=== PATIENT | male | born 1965 | race African-American/Black ===

== ENCOUNTER 2017-01-06 13:43 | Emergency (ER) | payer MEDICAID ==
[~2017-01-06] VITALS: Ht 175.3 cm; Wt 68.0 kg
[~2017-01-06 13:43] MED LIST: ATOR40TA70 PO; CHLO25TA27 GT; CLON0.2T PO; DICL75TA5 PO; ENAL10TA PO; ESOM40CA PO; HYDR-519 PO; LORA1TAB PO; ONDA4TAB51 PO
[2017-01-06] MEDS ORDERED: HYDROCODONE/ACETAMINOPHEN 5/325MG TABLET PO ONE ×2 (15:00→18:30)
[2017-01-06] MEDS ORDERED: LIDOCAINE HCL 1% 20ML VIAL (Pyxis) INJ INFIL ONE (16:45)
[2017-01-06] MEDS ORDERED: FENTANYL CITRATE/PF 50MCG/ML 2ML VIAL IV ONE (17:30)
[2017-01-06 18:40] VITALS: BP 165/101
== END 2017-01-06 19:09 | disposition home or self-care (01) ==
LOC: ER 14:14
DX: S52.571A Other intraarticular fracture of lower end of right radius, initial encounter for closed fracture (principal); I10 Essential (primary) hypertension; I51.9 Heart disease, unspecified; F12.10 Cannabis abuse, uncomplicated; Z87.19 Personal history of other diseases of the digestive system; Z88.6 Allergy status to analgesic agent; Z88.8 Allergy status to other drugs, medicaments and biological substances; Z79.899 Other long term (current) drug therapy; W11.XXXA Fall on and from ladder, initial encounter; Y93.89 Activity, other specified; Y92.89 Other specified places as the place of occurrence of the external cause; Y99.8 Other external cause status
CPT/HCPCS: 25675; 71020; 72125; 73100; 73110; 73130; 73630; 99284; J3010; J3490; A4565

== ENCOUNTER 2017-04-13 06:01 | Emergency (ER) | payer MEDICAID ==
[~2017-04-13] VITALS: Ht 175.3 cm; Wt 68.0 kg
[2017-04-13 06:03] VITALS: BP 186/82
== END 2017-04-13 08:57 | disposition left against medical advice (07) ==
LOC: ER 06:01
DX: F10.10 Alcohol abuse, uncomplicated (principal); Y90.9 Presence of alcohol in blood, level not specified; Z53.21 Procedure and treatment not carried out due to patient leaving prior to being seen by health care provider

== ENCOUNTER 2017-08-14 20:42 | Emergency (ER) | payer MEDICAID ==
[~2017-08-14] VITALS: Ht 175.3 cm; Wt 72.0 kg
[2017-08-14 21:42] LABS: BASOPHILS % 1.3 % (0.0-2.0); EOSINOPHILS % 2.1 % (0.0-5.0); HEMATOCRIT. 41.7 % (42.0-52.0); HEMOGLOBIN. 14.3 g/dL (14.0-18.0); LYMPHOCYTES % 34.8 % (20.0-50.0); MEAN CORPUSCULAR HEMOGLOBIN 31.5 pg (28.0-32.0); MEAN CORPUSCULAR VOLUME 91.7 fL (80.0-94.0); MEAN PLATELET VOLUME 7.5 fl (7.4-10.4); MONOCYTES % 5.9 % (2.0-8.0); NEUTROPHILS % 55.9 % (40.0-76.0); PLATELET 310 x1000/uL (130-400); RED BLOOD CELL COUNT 4.55 mill/uL (4.7-6.1); RED CELL DISTRIBUTION WIDTH 13.8 % (11.6-14.6)
[2017-08-14 21:45] LABS: CHLORIDE 108 mEq/L (98-107)
[2017-08-14 21:47] LABS: PROTHROMBIN TIME 10.1 sec (9.4-11.6)
[2017-08-14 21:54] LABS: CARBON DIOXIDE 26 mEq/L (21-32); ETHANOL BLOOD 272 mg/dL
[2017-08-14] MEDS ORDERED: ASPIRIN 81MG TABLET PO ONE (22:45)
[2017-08-14 23:06] LABS: CLARITY URINE CLEAR (CLEAR); COLOR URINE YELLOW (YELLOW); KETONES URINE NEGATIVE (NEGATIVE); LEUKOCYTE ESTERASE URINE NEGATIVE (NEGATIVE); NITRITE URINE NEGATIVE (NEGATIVE); OCCULT BLOOD URINE NEGATIVE (NEGATIVE); PROTEIN URINE NEGATIVE (NEGATIVE); UROBILINOGEN URINE 0.2 E.U./dL (0.2-1.0)
[2017-08-14 23:19] LABS: *AMPHETAMINES SCREEN URINE NEGATIVE (NEGATIVE); *BARBITURATES SCREEN URINE NEGATIVE (NEGATIVE); *BENZODIAZEPINES SCREEN URINE NEGATIVE (NEGATIVE); *COCAINE SCREEN URINE NEGATIVE (NEGATIVE); CANNABINOID URINE SCREEN NEGATIVE (NEGATIVE); METHADONE URINE SCREEN NEGATIVE (NEGATIVE); OPIATES URINE SCREEN NEGATIVE (NEGATIVE); PHENCYCLIDINE URINE SCREEN NEGATIVE (NEGATIVE)
[2017-08-15 01:48] VITALS: BP 122/64
== END 2017-08-15 02:55 | disposition home or self-care (01) ==
LOC: ER 21:00
DX: F10.129 Alcohol abuse with intoxication, unspecified (principal); K21.9 Gastro-esophageal reflux disease without esophagitis; F12.10 Cannabis abuse, uncomplicated; R00.0 Tachycardia, unspecified; Y90.8 Blood alcohol level of 240 mg/100 ml or more; I11.9 Hypertensive heart disease without heart failure; E78.5 Hyperlipidemia, unspecified; I51.7 Cardiomegaly; Z88.6 Allergy status to analgesic agent; Z88.5 Allergy status to narcotic agent; Z79.82 Long term (current) use of aspirin; Z91.018 Allergy to other foods
CPT/HCPCS: 36415; 71045; 80053; 80305; 81003; 84484; 85025; 85610; 93005; 99285; G0482

== ENCOUNTER 2017-11-11 16:34 | Emergency (ER) | payer MEDICAID ==
[~2017-11-11] VITALS: Ht 177.8 cm; Wt 75.0 kg
[2017-11-11] MEDS ORDERED: ACETAMINOPHEN 500MG TABLET PO ONE (20:45)
[2017-11-11] MEDS ORDERED: ONDANSETRON 4MG ODT PO STA (21:10)
[2017-11-11] MEDS ORDERED: SODIUM CHLORIDE 0.9% 1,000 ML IV ONE (21:50)
[2017-11-11] MEDS ORDERED: CLONIDINE 0.1MG TABLET PO ONE (22:30)
[2017-11-11 23:45] LABS: BASOPHILS % 0.8 % (0.0-2.0); EOSINOPHILS % 0.3 % (0.0-5.0); HEMOGLOBIN. 14.2 g/dL (14.0-18.0); LYMPHOCYTES % 15.2 % (20.0-50.0); MEAN CORPUSCULAR VOLUME 92.2 fL (80.0-94.0); MEAN PLATELET VOLUME 7.5 fl (7.4-10.4); MONOCYTES % 4.6 % (2.0-8.0); NEUTROPHILS % 79.1 % (40.0-76.0); PLATELET 293 x1000/uL (130-400); RED BLOOD CELL COUNT 4.45 mill/uL (4.7-6.1); RED CELL DISTRIBUTION WIDTH 14.4 % (11.6-14.6)
[2017-11-11 23:51] LABS: CHLORIDE 105 mEq/L (98-107)
[2017-11-11 23:57] LABS: ETHANOL BLOOD 135 mg/dL
[2017-11-11 23:59] LABS: *BENZODIAZEPINES SCREEN URINE NEGATIVE (NEGATIVE); *COCAINE SCREEN URINE NEGATIVE (NEGATIVE); CANNABINOID URINE SCREEN NEGATIVE (NEGATIVE); PHENCYCLIDINE URINE SCREEN NEGATIVE (NEGATIVE)
[2017-11-12 00:01] LABS: *AMPHETAMINES SCREEN URINE NEGATIVE (NEGATIVE); *BARBITURATES SCREEN URINE NEGATIVE (NEGATIVE); METHADONE URINE SCREEN NEGATIVE (NEGATIVE)
[2017-11-12 00:26] LABS: OPIATES URINE SCREEN NEGATIVE (NEGATIVE)
[2017-11-12] MEDS ORDERED: CLONIDINE 0.2MG TABLET PO ONE (02:30)
[2017-11-12] MEDS ORDERED: HYDROCODONE/ACETAMINOPHEN 5/325MG TABLET PO ONE (02:30)
[2017-11-12 04:44] VITALS: BP 136/93
== END 2017-11-12 04:50 | disposition home or self-care (01) ==
LOC: ER 16:34
DX: S00.83XA Contusion of other part of head, initial encounter (principal); S40.012A Contusion of left shoulder, initial encounter; M25.512 Pain in left shoulder; F10.129 Alcohol abuse with intoxication, unspecified; I10 Essential (primary) hypertension; M25.78 Osteophyte, vertebrae; J32.0 Chronic maxillary sinusitis; M48.02 Spinal stenosis, cervical region; Y04.0XXA Assault by unarmed brawl or fight, initial encounter; Z88.5 Allergy status to narcotic agent; Z88.6 Allergy status to analgesic agent
CPT/HCPCS: 36415; 70450; 71045; 72125; 73030; 80048; 80305; 85025; 99285; G0482; J7030; Q0162; Z7610

== ENCOUNTER 2017-11-28 15:58 | Emergency (ER) | payer MEDICAID ==
[2017-11-28] MEDS ORDERED: ONDANSETRON HCL 4MG/2ML VIAL IV STA (16:58)
[2017-11-28] MEDS ORDERED: HYDRALAZINE 20MG/ML VIAL IV ONE (17:00)
[2017-11-28 17:07] LABS: BASOPHILS % 1.2 % (0.0-2.0); EOSINOPHILS % 1.4 % (0.0-5.0); HEMATOCRIT. 42.9 % (42.0-52.0); HEMOGLOBIN. 14.7 g/dL (14.0-18.0); LYMPHOCYTES % 42.9 % (20.0-50.0); MEAN CORPUSCULAR HEMOGLOBIN 31.4 pg (28.0-32.0); MEAN CORPUSCULAR VOLUME 91.7 fL (80.0-94.0); MEAN PLATELET VOLUME 7.3 fl (7.4-10.4); MONOCYTES % 6.2 % (2.0-8.0); NEUTROPHILS % 48.3 % (40.0-76.0); PLATELET 257 x1000/uL (130-400); RED BLOOD CELL COUNT 4.68 mill/uL (4.7-6.1); RED CELL DISTRIBUTION WIDTH 14.2 % (11.6-14.6)
[2017-11-28 17:12] LABS: CHLORIDE 107 mEq/L (98-107)
[2017-11-28 17:14] LABS: PARTIAL THROMBOPLASTIN TIME 27.1 sec (23.4-31.0); PROTHROMBIN TIME 10.4 sec (9.4-11.6)
[2017-11-28] MEDS ORDERED: DIPHENHYDRAMINE 50MG/ML VIAL IV ONE ×2 (17:15→20:45)
[2017-11-28] MEDS ORDERED: MORPHINE SULFATE 4 MG/ML CPJ (NOT FOR IM USE) IV ONE ×2 (17:15→20:45)
[2017-11-28] MEDS ORDERED: IOHEXOL-300 100 ML BOTTLE ONE (19:08)
[2017-11-28 20:29] LABS: CLARITY URINE CLEAR (CLEAR); COLOR URINE YELLOW (YELLOW); KETONES URINE NEGATIVE (NEGATIVE); LEUKOCYTE ESTERASE URINE NEGATIVE (NEGATIVE); NITRITE URINE NEGATIVE (NEGATIVE); OCCULT BLOOD URINE NEGATIVE (NEGATIVE); PROTEIN URINE NEGATIVE (NEGATIVE); SPECIFIC GRAVITY URINE 1.019 (1.005-1.030); UROBILINOGEN URINE 0.2 E.U./dL (0.2-1.0)
[2017-11-28 22:35] VITALS: BP 184/120
== END 2017-11-28 23:25 | disposition short-term general hospital (02) ==
LOC: ER 16:47
DX: M50.223 Other cervical disc displacement at C6-C7 level (principal); M51.26 Other intervertebral disc displacement, lumbar region; R10.9 Unspecified abdominal pain; M51.36 Other intervertebral disc degeneration, lumbar region; I10 Essential (primary) hypertension; M48.061 Spinal stenosis, lumbar region without neurogenic claudication; M48.02 Spinal stenosis, cervical region; M25.78 Osteophyte, vertebrae; M47.9 Spondylosis, unspecified; K80.20 Calculus of gallbladder without cholecystitis without obstruction; Q63.2 Ectopic kidney; N40.0 Benign prostatic hyperplasia without lower urinary tract symptoms; K76.0 Fatty (change of) liver, not elsewhere classified; E78.00 Pure hypercholesterolemia, unspecified; Z88.5 Allergy status to narcotic agent; Z88.6 Allergy status to analgesic agent
CPT/HCPCS: 36415; 71045; 72141; 72146; 72148; 74177; 80053; 81003; 83690; 84484; 85025; 85610; 85730; 86850; 86900; 86901; 93005; 96374; 96375; 96376; 99285; J0360; J1200; J2270; J2405; Q9967

== ENCOUNTER 2019-01-01 20:31 | Inpatient (IN) | payer MEDICAID ==
[~2019-01-01] VITALS: Ht 175.3 cm; Wt 76.2 kg
[2019-01-01] MEDS ORDERED: KETOROLAC 30MG/ML VIAL IV STA (23:12)
[2019-01-01] MEDS ORDERED: ONDANSETRON HCL 4MG/2ML INJ IV STA (23:12)
[2019-01-01] MEDS ORDERED: VISCOUS LIDOCAINE 2% 15 ML UDC PO ONE (23:15)
[2019-01-01] MEDS ORDERED: MAGNESIUM/ALUMINUM HYDROXIDE/SIMETHICONE 30ML UDC PO ONE (23:15)
[2019-01-01 23:52] LABS: BASOPHILS % 1.2 % (0.0-2.0); EOSINOPHILS % 0.3 % (0.0-5.0); HEMATOCRIT. 41.4 % (42.0-52.0); HEMOGLOBIN. 14.5 g/dL (14.0-18.0); LYMPHOCYTES % 26.3 % (20.0-50.0); MEAN CORPUSCULAR HEMOGLOBIN 31.5 pg (28.0-32.0); MEAN CORPUSCULAR VOLUME 89.9 fL (80.0-94.0); MEAN PLATELET VOLUME 7.7 fl (7.4-10.4); MONOCYTES % 5.7 % (2.0-8.0); NEUTROPHILS % 66.5 % (40.0-76.0); PLATELET 253 x1000/uL (130-400); RED CELL DISTRIBUTION WIDTH 14.4 % (11.6-14.6)
[2019-01-01 23:58] LABS: CHLORIDE 104 mEq/L (98-107)
[2019-01-02 08:02] LABS: CHLORIDE 103 mEq/L (98-107)
[2019-01-02 08:09] LABS: LDL CHOLESTEROL 91 mg/dL (5-100)
[2019-01-02 08:15] LABS: HDL CHOLESTEROL 51 mg/dL (40-59)
[2019-01-02] MEDS ORDERED: GUAIFENESIN 200MG/10ML SUGAR FREE UDC PO PRN (09:15)
[2019-01-02] MEDS ORDERED: DOCUSATE SODIUM 100MG CAPSULE PO PRN (09:15)
[2019-01-02] MEDS ORDERED: MAGNESIUM/ALUMINUM HYDROXIDE/SIMETHICONE 30ML UDC PO PRN (09:15)
[2019-01-02] MEDS ORDERED: ACETAMINOPHEN 325MG TABLET PO PRN (09:15)
[2019-01-02] MEDS ORDERED: ONDANSETRON HCL 4MG/2ML INJ IV PRN (09:15)
[2019-01-02] MEDS ORDERED: DIPHENHYDRAMINE 50MG/ML VIAL IV PRN (09:15)
[2019-01-02] MEDS: ASPIRIN 81MG TABLET PO SCH (09:15)
[2019-01-02 09:19] LABS: *AMPHETAMINES SCREEN URINE NEGATIVE (NEGATIVE); *BARBITURATES SCREEN URINE NEGATIVE (NEGATIVE)
[2019-01-02 09:20] LABS: *BENZODIAZEPINES SCREEN URINE NEGATIVE (NEGATIVE); *COCAINE SCREEN URINE NEGATIVE (NEGATIVE); CANNABINOID URINE SCREEN NEGATIVE (NEGATIVE); METHADONE URINE SCREEN NEGATIVE (NEGATIVE); OPIATES URINE SCREEN PRESUMTIVE POSITIVE (NEGATIVE); PHENCYCLIDINE URINE SCREEN NEGATIVE (NEGATIVE)
[2019-01-02 10:48] LABS: PHOSPHORUS 4.5 mg/dL (2.5-4.9)
[2019-01-02 11:50] VITALS: BP 115/80
[2019-01-02 12:17] VITALS: BP 115/80
[2019-01-02] MEDS ORDERED: LORA10TA7 PO (12:28)
[2019-01-02] MEDS ORDERED: AMLO-79 MT (12:28)
[2019-01-02] MEDS: HYDROCODONE/ACETAMINOPHEN 5/325MG TABLET PO PRN ×2 (14:00→22:12)
[2019-01-02 16:00] VITALS: BP 108/76
[2019-01-02 20:00] VITALS: BP 110/78
[2019-01-03] VITALS: BP 108/78
[2019-01-03 04:00] VITALS: BP 90/56
[2019-01-03 05:58] LABS: BASOPHILS % 0.8 % (0.0-2.0); EOSINOPHILS % 2.2 % (0.0-5.0); HEMOGLOBIN. 15.3 g/dL (14.0-18.0); LYMPHOCYTES % 31.9 % (20.0-50.0); MEAN CORPUSCULAR VOLUME 91.1 fL (80.0-94.0); MEAN PLATELET VOLUME 7.9 fl (7.4-10.4); MONOCYTES % 7.9 % (2.0-8.0); NEUTROPHILS % 57.2 % (40.0-76.0); PLATELET 265 x1000/uL (130-400); RED BLOOD CELL COUNT 4.94 mill/uL (4.7-6.1); RED CELL DISTRIBUTION WIDTH 14.4 % (11.6-14.6)
[2019-01-03 06:07] LABS: CHLORIDE 106 mEq/L (98-107)
[2019-01-03 06:18] LABS: PHOSPHORUS 3.9 mg/dL (2.5-4.9)
[2019-01-03 06:19] LABS: LDL CHOLESTEROL 83 mg/dL (5-100)
[2019-01-03 06:20] LABS: CREATINE KINASE 124 IU/L (39-308)
[2019-01-03 06:21] LABS: HDL CHOLESTEROL 50 mg/dL (40-59)
[2019-01-03 08:00] VITALS: BP 117/88
[2019-01-03] MEDS: ASPIRIN 81MG TABLET PO SCH (08:46)
[2019-01-03 12:00] VITALS: BP 138/92
[2019-01-03 15:09] LABS: CLARITY URINE CLEAR (CLEAR); COLOR URINE YELLOW (YELLOW); KETONES URINE NEGATIVE (NEGATIVE); LEUKOCYTE ESTERASE URINE NEGATIVE (NEGATIVE); NITRITE URINE NEGATIVE (NEGATIVE); OCCULT BLOOD URINE NEGATIVE (NEGATIVE); PROTEIN URINE NEGATIVE (NEGATIVE); UROBILINOGEN URINE 0.2 E.U./dL (0.2-1.0)
[2019-01-03 16:00] VITALS: BP 135/96
[2019-01-03] MEDS: HYDROCODONE/ACETAMINOPHEN 5/325MG TABLET PO PRN (16:54)
[2019-01-03 20:00] VITALS: BP 133/93
[2019-01-03] MEDS: CLONIDINE 0.1MG TABLET PO PRN (21:44)
[2019-01-04] VITALS: BP 100/74
[2019-01-04 04:00] VITALS: BP 98/63
[2019-01-04] MEDS: HYDROCODONE/ACETAMINOPHEN 5/325MG TABLET PO PRN ×2 (04:38→15:46)
[2019-01-04 06:15] LABS: CHLORIDE 104 mEq/L (98-107)
[2019-01-04 06:21] LABS: PHOSPHORUS 4.1 mg/dL (2.5-4.9)
[2019-01-04 06:26] LABS: BASOPHILS % 0.9 % (0.0-2.0); EOSINOPHILS % 2.5 % (0.0-5.0); HEMATOCRIT. 42.5 % (42.0-52.0); HEMOGLOBIN. 14.8 g/dL (14.0-18.0); LYMPHOCYTES % 36.1 % (20.0-50.0); MEAN CORPUSCULAR HEMOGLOBIN 31.4 pg (28.0-32.0); MEAN CORPUSCULAR VOLUME 90.4 fL (80.0-94.0); NEUTROPHILS % 51.5 % (40.0-76.0); PLATELET 264 x1000/uL (130-400); RED BLOOD CELL COUNT 4.71 mill/uL (4.7-6.1); RED CELL DISTRIBUTION WIDTH 14.4 % (11.6-14.6)
[2019-01-04 08:00] VITALS: BP 121/53
[2019-01-04] MEDS: ASPIRIN 81MG TABLET PO SCH (09:09)
[2019-01-04 12:00] VITALS: BP 125/87
[2019-01-04 20:00] VITALS: BP 135/89
[2019-01-04] MEDS ORDERED: PIPERACILLIN/TAZOBACTAM 3.375 G in DEXT 5% WATER 100 ML IV SCH (20:00)
[2019-01-04] MEDS: PIPERACILLIN/TAZ 3.375G PREMIX 50 ML IV SCH (21:41)
[2019-01-05] VITALS: BP 119/86
[2019-01-05 04:00] VITALS: BP 110/75
[2019-01-05] MEDS: PIPERACILLIN/TAZ 3.375G PREMIX 50 ML IV SCH ×2 (04:33→12:53)
[2019-01-05] MEDS: HYDROCODONE/ACETAMINOPHEN 5/325MG TABLET PO PRN (04:57)
[2019-01-05 08:14] VITALS: BP 127/92
[2019-01-05] MEDS: ASPIRIN 81MG TABLET PO SCH (08:57)
[2019-01-05] MEDS: CLONIDINE 0.1MG TABLET PO PRN (08:57)
[2019-01-05 12:00] VITALS: BP 107/75
[2019-01-05 14:10] VITALS: BP 107/75
== END 2019-01-05 15:28 | disposition short-term general hospital (02) ==
LOC: ER 20:31 → 8WST 01-02 07:08 → ENRESERV 01-02 11:10
PROVIDERS: ADMIT Internal Medicine; ATTEND Internal Medicine
DX: K80.00 Calculus of gallbladder with acute cholecystitis without obstruction (principal); N17.0 Acute kidney failure with tubular necrosis; N18.3 Chronic kidney disease, stage 3 (moderate); M94.0 Chondrocostal junction syndrome [Tietze]; E78.5 Hyperlipidemia, unspecified; E78.00 Pure hypercholesterolemia, unspecified; F12.90 Cannabis use, unspecified, uncomplicated; I12.9 Hypertensive chronic kidney disease with stage 1 through stage 4 chronic kidney disease, or unspecified chronic kidney disease; F10.10 Alcohol abuse, uncomplicated; Z82.49 Family history of ischemic heart disease and other diseases of the circulatory system; Z88.6 Allergy status to analgesic agent; Z88.8 Allergy status to other drugs, medicaments and biological substances; Z91.018 Allergy to other foods; Q63.1 Lobulated, fused and horseshoe kidney; Z79.899 Other long term (current) drug therapy
CPT/HCPCS: 36415; 71045; 76705; 76770; 80061; 80305; 82550; 83735; 83880; 84100; 84443; 84484; 93005; 93306; 93970; 99285; J1885; J2405; J2543; J7050

== ENCOUNTER 2019-04-04 04:12 | Emergency (ER) | payer MEDICAID ==
[~2019-04-04] VITALS: Ht 175.3 cm; Wt 60.3 kg
[~2019-04-04 04:12] MED LIST changes: +AMLO-79 MT; +LORA10TA7 PO
[2019-04-04] MEDS ORDERED: KETOROLAC 60MG/2ML VIAL IM ONE (06:45)
[2019-04-04] MEDS ORDERED: CLONIDINE 0.2MG TABLET PO ONE (07:15)
[2019-04-04 09:16] VITALS: BP 142/97
== END 2019-04-04 09:20 | disposition home or self-care (01) ==
LOC: ER 04:12
DX: M25.511 Pain in right shoulder (principal); M54.5 Low back pain
CPT/HCPCS: 96372; 99283; J1885

== ENCOUNTER 2019-04-16 01:03 | Emergency (ER) | payer MEDICAID ==
[~2019-04-16] VITALS: Ht 185.4 cm; Wt 72.0 kg
[2019-04-16] MEDS ORDERED: HYDROCODONE/ACETAMINOPHEN 5/325MG TABLET PO ONE (03:00)
[2019-04-16 03:20] VITALS: BP 142/89
== END 2019-04-16 03:21 | disposition home or self-care (01) ==
LOC: ER 01:03
DX: G89.29 Other chronic pain (principal); M54.9 Dorsalgia, unspecified; E78.00 Pure hypercholesterolemia, unspecified; I10 Essential (primary) hypertension; F12.10 Cannabis abuse, uncomplicated; Z88.6 Allergy status to analgesic agent; Z79.899 Other long term (current) drug therapy; Z85.05 Personal history of malignant neoplasm of liver
CPT/HCPCS: 99283